=== PATIENT | male | born 1985 | race Caucasian/White ===

== ENCOUNTER 2023-11-24 09:32 | Outpatient (CLI) | payer SELFPAY | END 2023-11-24 23:59 | disposition EMS.NT | LOC: EMS 09:32 | DX: H53.8 Other visual disturbances (principal) ==

== ENCOUNTER 2024-01-01 15:44 | Emergency (ER) | payer OTHER ==
[2024-01-01] MEDS: PROPARACAINE 0.5% OPHTH DROPS 15 ML LEFTEYE STA (16:07)
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
[2024-01-01 17:08] VITALS: BP 148/79; O2SAT 98
== END 2024-01-01 17:06 | disposition home or self-care (01) ==
LOC: ED 15:44
DX: H20.00 Unspecified acute and subacute iridocyclitis (principal); W20.8XXA Other cause of strike by thrown, projected or falling object, initial encounter
CPT/HCPCS: 99283; 99284; J3490